=== PATIENT | female | born 1945 | race Caucasian/White ===

== ENCOUNTER 2018-07-30 07:20 | Day surgery (SDC) | payer MEDICARE, MEDICAID ==
[~2018-07-30] VITALS: Ht 165.1 cm; Wt 103.6 kg
[2018-07-30] VITALS (9 sets, daily range): BP systolic 101–132; BP diastolic 56–74
[~2018-07-30 07:20] MED LIST: ALBU8HFA PO; ASPI-1265 PO; ATE25T PO; DIPH-423 PO; HCTZ25T PO; HYDR-569 PO; LORazepam 0.5 MG tablet PO PRN; MONT10TA21 PO; OMEP-84 PO; SIMV20TA5 PO; SUMA100T PO; diphenhydrAMINE 25mg capsule PO PRN; nitroGLYCERIN 0.4mg SUBLingual tab SL PRN; normal saline 1000ml 1,000 ML IV SCH
[2018-07-30] MEDS ORDERED: diphenhydrAMINE 25mg capsule PO PRN (07:50)
[2018-07-30] MEDS ORDERED: sod bicarbonate 150mEq in D5W 1,150 ML IV ONE (07:50)
[2018-07-30] MEDS ORDERED: normal saline 1000ml 1,000 ML IV SCH (08:45)
[2018-07-30] MEDS ORDERED: LIDOcaine/PRILOcaine 5gm cream TP ONE (08:55)
[2018-07-30] MEDS ORDERED: GLUC-133 PO (08:59)
[2018-07-30] MEDS ORDERED: ASPI-1264 PO (08:59)
[2018-07-30] MEDS ORDERED: ALLO100T PO (08:59)
[2018-07-30] MEDS ORDERED: ALBU18HF2 INH (08:59)
[2018-07-30 09:30] LABS: BASOPHILS % (AUTO) 0.5 % (0-1); EOSINOPHILS # (AUTO) 0.6 X10'3 (0-0.9); EOSINOPHILS % (AUTO) 9.5 % (0-6); HEMATOCRIT 43.8 % (35.0-45.0); HEMOGLOBIN 14.6 g/dl (12.0-16.0); LYMPHOCYTES # (AUTO) 2.8 X10'3 (1.1-4.8); MEAN CORPUSCULAR HEMOGLOBIN 28.7 PG (27.0-31.0); MEAN CORPUSCULAR HGB CONC 33.2 g/dL (33.0-36.5); MEAN CORPUSCULAR VOLUME 86.4 FL (78-98); MEAN PLATELET VOLUME 10.9 FL (7.4-10.4); MONOCYTES # (AUTO) 0.4 X10'3 (0-0.9); NEUTROPHILS # (AUTO) 2.8 X10'3 (1.8-7.7); PLATELET COUNT 193 X10'3 (140-440); RED BLOOD COUNT 5.06 X10'6 (4.20-5.60); WHITE BLOOD COUNT 6.7 X10'3 (4.5-11.0)
[2018-07-30 09:39] LABS: ALBUMIN 3.9 G/DL (3.4-5.0); ANION GAP 9 (8-16); BLOOD UREA NITROGEN 29 MG/DL (7-18); BUN/CREATININE RATIO 26.6 (6.6-38.0); CALCIUM 10.2 MG/DL (8.5-10.1); CHLORIDE 103 MMOL/L (99-107); CREATININE 1.09 MG/DL (0.40-0.90); GLUCOSE 88 MG/DL (70-104); MAGNESIUM 1.6 MG/DL (1.5-2.4); POTASSIUM 4.4 MMOL/L (3.5-5.1); SODIUM 140 MMOL/L (135-145); eGFR 49 ML/MIN
[2018-07-30] MEDS ORDERED: nitroGLYCERIN-Tridil 50MG/D5W 250 ML IV ONE (09:42)
[2018-07-30] MEDS ORDERED: midazolam 2 mg/2 ml injection ONE ×3 (09:43→10:40)
[2018-07-30] MEDS ORDERED: heparin 1,000unit/ml 10ml vial 10 ML ONE (09:43)
[2018-07-30] MEDS ORDERED: fentaNYL/PF 50MCG/1 ML 2ML syringe ONE ×2 (09:43→10:40)
[2018-07-30] MEDS ORDERED: iohexol 350 MG/ML 50ML vial IV ONE (09:43)
[2018-07-30] MEDS ORDERED: verapamil 2.5 mg/ml inj IV ONE (09:43)
[2018-07-30] MEDS ORDERED: iohexol 350MG/ML 100ml bottle IV ONE (09:43)
[2018-07-30] MEDS ORDERED: LIDOcaine 1% (10mg/ml)w/preservative injection 20ml MDV ONE (09:43)
[2018-07-30 09:48] LABS: PROTHROMBIN TIME 10.3 SECONDS (9.0-12.0)
== END 2018-07-30 14:45 | disposition home or self-care (01) ==
LOC: SSTAY O 07:20
PROVIDERS: ATTEND Internal Medicine Cardiovascular Disease
DX: R94.39 Abnormal result of other cardiovascular function study (principal); J45.998 Other asthma; K21.9 Gastro-esophageal reflux disease without esophagitis; I10 Essential (primary) hypertension; E78.00 Pure hypercholesterolemia, unspecified; Z90.49 Acquired absence of other specified parts of digestive tract; Z98.41 Cataract extraction status, right eye; Z98.42 Cataract extraction status, left eye; Z88.5 Allergy status to narcotic agent; Z79.82 Long term (current) use of aspirin; Z79.891 Long term (current) use of opiate analgesic; Z91.048 Other nonmedicinal substance allergy status; Z91.030 Bee allergy status; Z79.899 Other long term (current) drug therapy; Z98.890 Other specified postprocedural states; Z88.8 Allergy status to other drugs, medicaments and biological substances; Z80.0 Family history of malignant neoplasm of digestive organs
CPT/HCPCS: 36415; 80048; 83735; 85025; 85610; 93458; 99152; 99153; A6257; C1760; J1644; J2001; J2250; J3010; Q0163; Q9967; 93005; A4620; C1769; C1894; J3490; J7030